=== PATIENT | female | born 2000 ===

== ENCOUNTER 2020-05-19 18:35 | Emergency (ER) | payer OTHER ==
[2020-05-19 18:43] VITALS: BP 134/82
--- NOTE | 2020-05-19 19:33 | Event Note ---
ED Screening Note Date of service: 05/19/20 Time: 19:28 ED Screening Note: 19-year-old -[place] female presents to the emergency room complaining of cough, nausea vomiting and sore throat. Patient reports that she has some pink-tinged mucus. Denies any Covid positive contact. Denies any fever chills. This initial assessment/diagnostic orders/clinical plan/treatment(s) is/are subject to change based on patients health status, clinical progression and re- assessment by fellow clinical providers in the ED. Further treatment and workup at subsequent clinical providers discretion. Patient/guardian urged not to elope from the ED as their condition may be serious if not clinically assessed and managed. Initial orders include:
[2020-05-19 19:51] LABS: Basophils % (Auto) 0.5 % (0.0-1.8); Eosinophils # (Auto) 0.1 K/mm3 (0.0-0.4); Eosinophils % (Auto) 0.8 % (0.0-4.3); Hematocrit 40.7 % (30.3-42.9); Hemoglobin 13.7 gm/dl (10.1-14.3); Lymphocytes # (Auto) 2.3 K/mm3 (1.2-5.4); Lymphocytes % (Auto) 32.8 % (13.4-35.0); Mean Corpuscular HGB Conc 34 % (30-34); Mean Corpuscular Volume 93 fl (79-97); Monocytes # (Auto) 0.8 K/mm3 (0.0-0.8); Monocytes % (Auto) 11.9 % (0.0-7.3); Platelet Count 434 K/mm3 (140-440)
[2020-05-19 20:12] LABS: Alanine Aminotransferase 20 units/L (7-56); Albumin 4.3 g/dL (3.9-5); Blood Urea Nitrogen 6 mg/dL (7-17); Calcium 10.7 mg/dL (8.4-10.2); Hemolysis Index 16
[2020-05-19 20:24] LABS: BUN/Creatinine Ratio 12
== END 2020-05-19 23:55 | disposition left against medical advice (07) ==
LOC: ED 18:35
DX: R05 Cough (principal); Z53.21 Procedure and treatment not carried out due to patient leaving prior to being seen by health care provider
CPT/HCPCS: 36415; 80053; 85025; 87116; 87430